=== PATIENT | female | born 1950 | race Caucasian/White ===

== ENCOUNTER → 2017-03-26 | Outpatient (CLI) | payer MEDICARE, BC ==
[2017-03-26 11:51] LABS: ALT 36 U/L (9-52); AST 27 U/L (14-36); Alkaline Phosphatase 83 U/L (38-126); Anion Gap 12 mmol/L; Blood Urea Nitrogen 21 mg/dL (7-17); Calcium 9.7 mg/dL (8.4-10.2); Carbon Dioxide 26 mmol/L (22-30); Chloride 103 mmol/L (98-107); Glucose 129 mg/dL (74-99); Non-African American GFR(MDRD) >60 (>60 ml/min/1.73 sqM); Potassium 4.8 mmol/L (3.5-5.1); Sodium 141 mmol/L (137-145); Total Bilirubin 0.8 mg/dL (0.2-1.3); Total Protein 6.7 g/dL (6.3-8.2)
[2017-03-26 12:04] LABS: CH 29.6; CHCM 33.4; HCT 36.4 % (34.0-46.0); HDW 3.16; HGB 12.4 gm/dL (11.4-16.0); MCH 30.4 pg (25.0-35.0); MCV 89.3 fL (80.0-100.0); Mean Platelet Volume 7.6; RBC 4.07 m/uL (3.80-5.40); RDW 15.1 % (11.5-15.5); WBC 11.6 k/uL (3.8-10.6)
== END | disposition home or self-care (01) ==
LOC: LABWHC1 10:50
PROVIDERS: ATTEND Nurse Practitioner Adult Health
DX: I48.2 Chronic atrial fibrillation (principal); R06.02 Shortness of breath
CPT/HCPCS: 36415; 80053; 83880; 84443; 85027

== ENCOUNTER → 2019-06-14 | Outpatient (CLI) | payer MEDICARE, BC ==
--- NOTE | 2019-06-15 17:59 | MR ---
EXAMINATION TYPE: MR foot LT wo con DATE OF EXAM: 06/14/2019 COMPARISON: None HISTORY: Left cyst / Plantar midfoot persistent pain Standard multiplanar, multisequence MRI departmental protocol Multiplanar, multisequence images of the left foot were acquired. FINDINGS: There is soft tissue swelling and subcutaneous edema around the lower leg and in the forefo ot. The metatarsals are intact. I see no fracture. There is 1 cm irregular rounded area of fluid sign al in the anterior calcaneus at the calcaneal cuboidal joint consistent with a degenerative cyst. The Achilles tendon is intact. Plantar fascia appears intact. There is small area of increased signal al so in the dorsal aspect of the cuboidal bone at the calcaneal cuboidal joint. Ankle mortise is anatom ic. There is small amount of fluid between the first and second metatarsal heads. There is narrowing and spurring at the first MP joint. IMPRESSION: Cystic fluid collection between first and metatarsal heads consistent with a synovial cyst. Degenerative cyst formation on both sides of the calcaneal cuboidal joint. Subcutaneous edema and soft tissue swelling. No fracture seen.
== END | disposition home or self-care (01) ==
LOC: RADMRIMAIN 09:38
PROVIDERS: ATTEND Podiatrist Foot & Ankle Surgery
DX: M85.672 Other cyst of bone, left ankle and foot (principal); M79.89 Other specified soft tissue disorders; M25.872 Other specified joint disorders, left ankle and foot

== ENCOUNTER → 2019-07-29 | Outpatient (CLI) | payer MEDICARE, BC ==
--- NOTE | 2019-07-30 11:21 | MM ---
Reason for exam: screening (asymptomatic). Last mammogram was performed 9 years and 11 months ago. History: Patient is postmenopausal and is nulliparous. Family history of breast cancer in sister at age 52 and breast cancer in sister at age 48. Physical Findings: A clinical breast exam by your physician is recommended on an annual basis and results should be correlated with mammographic findings. MG 3D Screening Mammo W/Cad Bilateral CC and MLO view(s) were taken. Prior study comparison: September 09, 2009, bilateral digital screening mammogram. The breast tissue is almost entirely fat. No significant changes when compared with prior studies. ASSESSMENT: Benign, BI-RAD 2 RECOMMENDATION: Routine screening mammogram of both breasts in 1 year.
== END | disposition home or self-care (01) ==
LOC: RADMAMWWP 09:13
PROVIDERS: ATTEND Family Medicine
DX: Z12.31 Encounter for screening mammogram for malignant neoplasm of breast (principal)
CPT/HCPCS: 77063; 77067

== ENCOUNTER → 2023-08-06 | Outpatient (CLI) | payer MEDICARE ==
--- NOTE | 2023-08-07 19:11 | MM ---
Reason for Exam: Screening (asymptomatic). Last screening mammogram was performed 12 month(s) ago. Patient History: Menarche at age 10. Patient has no children. Postmenopausal. Sister had breast cancer, age 52. Sister had breast cancer, age 48. Risk Values: Alba 5 year model risk: 6.1%. NCI Lifetime model risk: 13.5%. Prior Study Comparison: 09/09/2009 Bilateral Screening Mammogram, [facility]. 07/29/2019 Bilateral Screening Mammogram, [facility]. 07/20/2022 Bilateral MG screening mammo w CAD, [facility]. Tissue Density: There are scattered fibroglandular densities. Findings: Analyzed By CAD. There is chronic bilateral nodularity. Unchanged numerous benign round calcifications throughout the left breast. There is no suspicious group of microcalcifications or new suspicious mass in either breast. Overall Assessment: Benign, BI-RAD 2 Management: Screening Mammogram of both breasts in 1 year. See note below in regards to patient's increased five-year Alba score. Patient should continue monthly self-breast exams. A clinical breast exam by your physician is recommended on an annual basis. This exam should not preclude additional follow-up of suspicious palpable abnormalities. Note on Alba scores and lifetime risk: 1. A Alba score greater than 3% is considered moderate risk. If this is the case, consider specialist referral to assess eligibility for a risk reducing agent. 2. If overall lifetime risk for the development of breast cancer is 20% or higher, the patient may qualify for future screening with alternating mammogram and breast MRI. Electronically signed and approved by: Osei Montes M.D. Radiologist
== END | disposition home or self-care (01) ==
LOC: RADMAMWWP 13:10
PROVIDERS: ATTEND Family Medicine
DX: Z12.31 Encounter for screening mammogram for malignant neoplasm of breast (principal); Z78.0 Asymptomatic menopausal state; Z80.3 Family history of malignant neoplasm of breast
CPT/HCPCS: 77063; 77067

== ENCOUNTER → 2024-09-26 | Outpatient (CLI) | payer MEDICARE ==
--- NOTE | 2024-09-26 14:23 | MM ---
Reason for Exam: Screening (asymptomatic). Last mammogram was performed 1 year(s) and 2 month(s) ago. Patient History: Menarche at age 10. Patient has no children. Postmenopausal. Sister had breast cancer, age 52. Sister had breast cancer, age 48. Risk Values: Alba 5 year model risk: 6.1%. NCI Lifetime model risk: 12.0%. Prior Study Comparison: 07/29/2019 Bilateral Screening Mammogram, [facility]. 07/20/2022 Bilateral MG screening mammo w CAD, [facility]. 08/06/2023 Bilateral MG 3D screening mammo w/cad, [facility]. Tissue Density: There are scattered areas of fibroglandular density. Findings: Analyzed By CAD. Right breast: There is no suspicious group of microcalcifications or new suspicious mass. Benign-appearing calcifications right breast. Left breast: There is no suspicious group of microcalcifications or new suspicious mass. Benign-appearing calcifications left breast. Overall Assessment: Benign, BI-RAD 2 Management: Screening Mammogram of both breasts in [address] [facility] will attempt to contact patient to return for supplemental views and ultrasound if indicated. Patient should continue monthly self-breast exams. A clinical breast exam by your physician is recommended on an annual basis. This exam should not preclude additional follow-up of suspicious palpable abnormalities. Note on Alba scores and lifetime risk: 1. A Alba score greater than 3% is considered moderate risk. If this is the case, consider specialist referral to assess eligibility for a risk reducing agent. 2. If overall lifetime risk for the development of breast cancer is 20% or higher, the patient may qualify for future screening with alternating mammogram and breast MRI. [facility], , 09/26/2024 2:20 PM. Electronically signed and approved by: Ludin Bernal DO
== END | disposition home or self-care (01) ==
LOC: RADMAMWWP 13:04
PROVIDERS: ATTEND Family Medicine
DX: Z12.31 Encounter for screening mammogram for malignant neoplasm of breast (principal); R92.323 Mammographic fibroglandular density, bilateral breasts; Z80.3 Family history of malignant neoplasm of breast; Z78.0 Asymptomatic menopausal state
CPT/HCPCS: 77063; 77067

== ENCOUNTER → 2025-01-02 | Outpatient (CLI) | payer MEDICARE ==
--- NOTE | 2025-01-02 15:32 | MR ---
EXAMINATION TYPE: MR ankle LT wo con DATE OF EXAM: 01/02/2025 11:53 AM COMPARISON: MRI foot 06/14/2019 CLINICAL INDICATION: Female, 74 years old with history of M25.572 PAIN IN LEFT ANKLE AND JOINTS OF LE FT FOOT, Lt ankle pain, no trauma TECHNIQUE: Multiplanar, multisequence images of the left ankle are obtained without IV contrast. FINDINGS: There is focal severe osteoarthritic change along the medial talar dome extending from front to back and measuring 1.0 cm wide. Possible osteochondral fragment measuring 1 cm wide here, coronal series 1 001 image 22 that is healed in place. Subtalar joint is aligned. However, there is extensive cystic change and associated edema at the late ral talar process and corresponding angle of Gissane at the calcaneal body. Redemonstrated subchondral cystic change on either side of the calcaneal cuboidal joint with reactive patchy osseous edema which is also progressed. There is a moderate joint effusion and synovitis at the tibiotalar joint and subtalar joints. Additional subchondral cystic change and articular surface irregularity has developed at the first an d second TMT joints. Generalized soft tissue swelling is redemonstrated. Edema along the plantar musculature redemonstrate d. Achilles tendon is intact with mild fusiform tendinopathy thickening of the middle third portion of t he 7 mm. The plantar fascia origin is intact. The syndesmosis and anterior extensor tendons appear intact. There is moderate tenosynovial fluid along the posterior tibial tendon. However, the medial flexor te ndons and deltoid spring ligament complex otherwise appear intact. The ATFL, PTFL, and CFL appear intact. Mild tenosynovial fluid on the lateral peroneal tendons which otherwise remain intact. Replacement of the normal fatty signal in the sinus Tarsi. Tarsal tunnel is clear. There appears to be a plantar soft tissue ulcer below the first CMC joint. Underlying this, there is focal severe capsular distention with edema along the plantar aspect of the first TMT joint. This has some mass effect on to the overlying flexor hallucis longus tendon. No suspicious bone marrow replac ement is identified. IMPRESSION: 1. 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 Moderate joint effusion and chronic synovitis within both the tibiotalar and subtal ar joints. 2. Marked interval progression in osseous edema and cystic change along the lateral talar process and body of the calcaneus may be due to extra-articular lateral hindfoot impingement. 3. Progressive moderate to severe osteoarthrosis of the calcaneocuboid joint as well as the first and second TMT joints. 4. There appears to be a plantar ulcer below the first TMT joint. There is severe thickening and mellisa a of the plantar first TMT joint capsule underlying the ulcer that could be reactive to the ulcer or secondary to a joint sprain. No convincing findings of osteomyelitis here at this time. 5. Marked generalized soft tissue swelling persists. Unclear if this relates to venous stasis and poonam ropathic changes versus other etiology such as RSD. Clinically correlate. [facility], , 01/02/2025 3:29 PM
== END | disposition home or self-care (01) ==
LOC: RADMRIMAIN 10:54
PROVIDERS: ATTEND Podiatrist Foot & Ankle Surgery
DX: M19.072 Primary osteoarthritis, left ankle and foot (principal); M65.972 Unspecified synovitis and tenosynovitis, left ankle and foot; M89.9 Disorder of bone, unspecified; R60.9 Edema, unspecified